=== PATIENT | female | born 1935 | race Caucasian/White ===

== ENCOUNTER → 2016-05-17 | Outpatient (CLI) | payer MEDICARE, BC ==
[~2016-05-17] MED LIST: ASCORBIC ACID500 MG PO; CALTRATE-600 D600 MG PO; CARAFATE DPS1 GM PO; CITRACAL + D E1 EACH PO; DITROPAN XL5 MG PO; GLUCOSAMINE &1 EACH PO; HYZAAR 100-251 EACH PO; LUTEIN6 MG PO; PEPCID DPS20 MG PO; PERCOCET 5 DPS1 TAB PO; PLAVIX75 MG PO; QUESTRAN DPS4 GM PO; THERA1 EACH PO; TUMS DPS500 MG PO; VESICARE5 MG PO; VITAMIN D-32000 UNI1 PO; ZOCOR DPS10 MG PO; ZOFRAN4 MG PO
== END | disposition home or self-care (01) ==
LOC: RAD.S 07:48
DX: R13.10 Dysphagia, unspecified (principal); K44.9 Diaphragmatic hernia without obstruction or gangrene; K22.8 Other specified diseases of esophagus

== ENCOUNTER 2016-06-23 05:41 | Day surgery (SDC) | payer MEDICARE, BC ==
[~2016-06-23] VITALS: Ht 157.5 cm; Wt 67.9 kg
--- NOTE | 2016-06-26 12:44 | OR ---
ADMIT: 06/23/2016 RM/LOC: [facility] MR#: [id number] [address] [address] CHRIS MAR [address] [place] [address] Operative/Delivery Room Report SEX: F AGE: 81 : 1935 SURGERY DATE: 06/23/2016 SURGEON: Duran Cruz MD PREOPERATIVE DIAGNOSES: 1. Reflux. 2. Dysphagia. 3. Known hiatal hernia. POSTOPERATIVE DIAGNOSES: 1. Approximately 4 cm hiatal hernia, appears to be a bit of a paraesophageal hiatal hernia with the gastroesophageal junction being fairly preserved in its position. 2. 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 PROCEDURE PERFORMED: EGD with biopsy. ANESTHESIA: Sedation. ESTIMATED BLOOD LOSS: None. DESCRIPTION OF PROCEDURE: After appropriate informed consent was obtained, the patient was brought to the endoscopy suite. IV sedation was provided. A well-lubricated endoscope was introduced and passed down the esophagus. The proximal and mid esophagus appeared normal. The distal esophagus though became a little bit tortuous, appearance of a presbyesophagus. The GE junction showed just very mild reflux changes, immediately encountered a large hiatal hernia. There was some twisting and distortion of the fundus of the stomach and some evidence of German's ulcerations at the rim of this hiatal hernia. The herniated portion of the stomach measured approximately 4 cm or so. It had a bit of appearance of a paraesophageal hernia with the position of the GE junction being fairly preserved, but the stomach herniating up around this. The antrum appeared normal. The pylorus was intubated. ADMIT: 06/23/2016 RM/LOC: [facility] MR#: [id number] [address] [place], [place] [address] CHRIS MAR [address] [place] [address] Operative/Delivery Room Report SEX: F AGE: 81 : 1935 Duodenal bulb, second and third portions of the duodenum appeared normal. The scope was pulled back into the stomach, retroflexed, revealing again this paraesophageal appearing hiatal hernia from below with some German's ulcerations proximally in the fundus. Several biopsies were taken in the antrum. Biopsies were also taken of the fundus, of the area of German's ulcers, and then lastly biopsies were taken at the GE junction. There was no tumor, no stricture narrowing at the GE junction. Stomach was then deflated, and the scope was withdrawn without apparent complications. The patient tolerated the procedure well and was taken to the recovery room in stable condition. Duran Cruz MD/ petros JOB #: [id number] CC: Duran Cruz, Attending Physician Kemar Delaney, Family Physician Kemar Delaney MD
[2016-07-14] MEDS ORDERED: DITROPAN XL5 MG PO (13:44)
[2016-07-14] MEDS ORDERED: CARAFATE DPS1 GM PO (13:44)
[2016-07-14] MEDS ORDERED: PEPCID DPS20 MG PO (13:44)
[2016-07-14] MEDS ORDERED: HYZAAR 100-251 EACH PO (13:44)
[2016-07-14] MEDS ORDERED: PLAVIX75 MG PO (13:45)
[2016-07-14] MEDS ORDERED: ZOCOR DPS10 MG PO (13:45)
[2016-07-14] MEDS ORDERED: QUESTRAN DPS4 GM PO (13:46)
[2016-07-14] MEDS ORDERED: CITRACAL + D E1 EACH PO (13:46)
[2016-07-14] MEDS ORDERED: THERA1 EACH PO (13:47)
[2016-07-14] MEDS ORDERED: TUMS DPS500 MG PO (13:47)
[2016-07-14] MEDS ORDERED: ASCORBIC ACID500 MG PO (13:47)
[2016-07-14] MEDS ORDERED: GLUCOSAMINE &1 EACH PO (13:47)
[2016-07-14] MEDS ORDERED: VESICARE5 MG PO (13:48)
[2016-07-14] MEDS ORDERED: LUTEIN6 MG PO (13:48)
[2016-07-14] MEDS ORDERED: VITAMIN D-32000 UNI1 PO (13:48)
[2016-07-14] MEDS ORDERED: PERCOCET 5 DPS1 TAB PO (13:48)
[2016-07-14] MEDS ORDERED: CALTRATE-600 D600 MG PO (13:48)
[2016-07-14] MEDS ORDERED: ZOFRAN4 MG PO (13:49)
== END 2016-06-23 08:57 | disposition home or self-care (01) ==
LOC: SSS 05:41
DX: K29.50 Unspecified chronic gastritis without bleeding (principal); K21.0 Gastro-esophageal reflux disease with esophagitis; I10 Essential (primary) hypertension; Z79.899 Other long term (current) drug therapy; Z88.8 Allergy status to other drugs, medicaments and biological substances; Z88.0 Allergy status to penicillin; Z88.2 Allergy status to sulfonamides; Z98.890 Other specified postprocedural states; Z86.73 Personal history of transient ischemic attack (TIA), and cerebral infarction without residual deficits; Z90.710 Acquired absence of both cervix and uterus; Z90.49 Acquired absence of other specified parts of digestive tract

== ENCOUNTER → 2016-07-06 | Outpatient (CLI) | payer MEDICARE, BC | END | disposition home or self-care (01) | LOC: PTH.S 08:54 | DX: Z01.818 Encounter for other preprocedural examination (principal); R00.1 Bradycardia, unspecified ==

== ENCOUNTER 2016-07-12 07:38 | Observation (INO) | payer MEDICARE, BC ==
[~2016-07-12] VITALS: Ht 157.5 cm; Wt 68.3 kg
[2016-07-14] MEDS ORDERED: HYZAAR 100-251 EACH PO (13:44)
[2016-07-14] MEDS ORDERED: DITROPAN XL5 MG PO (13:44)
[2016-07-14] MEDS ORDERED: PEPCID DPS20 MG PO (13:44)
[2016-07-14] MEDS ORDERED: CARAFATE DPS1 GM PO (13:44)
[2016-07-14] MEDS ORDERED: ZOCOR DPS10 MG PO (13:45)
[2016-07-14] MEDS ORDERED: PLAVIX75 MG PO (13:45)
[2016-07-14] MEDS ORDERED: CITRACAL + D E1 EACH PO (13:46)
[2016-07-14] MEDS ORDERED: QUESTRAN DPS4 GM PO (13:46)
[2016-07-14] MEDS ORDERED: THERA1 EACH PO (13:47)
[2016-07-14] MEDS ORDERED: TUMS DPS500 MG PO (13:47)
[2016-07-14] MEDS ORDERED: GLUCOSAMINE &1 EACH PO (13:47)
[2016-07-14] MEDS ORDERED: ASCORBIC ACID500 MG PO (13:47)
[2016-07-14] MEDS ORDERED: VITAMIN D-32000 UNI1 PO (13:48)
[2016-07-14] MEDS ORDERED: PERCOCET 5 DPS1 TAB PO (13:48)
[2016-07-14] MEDS ORDERED: VESICARE5 MG PO (13:48)
[2016-07-14] MEDS ORDERED: LUTEIN6 MG PO (13:48)
[2016-07-14] MEDS ORDERED: CALTRATE-600 D600 MG PO (13:48)
[2016-07-14] MEDS ORDERED: ZOFRAN4 MG PO (13:49)
--- NOTE | 2016-07-19 10:36 | OR ---
ADMIT: 07/12/2016 RM/LOC: [facility] MR#: [id number] [facility] [address] [place] [id number] JOSSIE MARAN Trent [address] [place] [address] Operative/Delivery Room Report SEX: F AGE: 81 : 1935 SURGERY DATE: 07/12/2016 SURGEON: Duran Cruz MD PREOPERATIVE DIAGNOSIS: Large paraesophageal hernia. POSTOPERATIVE DIAGNOSIS: Large paraesophageal hernia. PROCEDURE PERFORMED: Laparoscopic paraesophageal hernia repair and gastropexy. INSPECTOR BALANCE TRUING: Tomas Nicholas MD. ANESTHESIA: General endotracheal with addition of Marcaine in the wounds postprocedure. ESTIMATED BLOOD LOSS: Less than 10 mL. DESCRIPTION OF PROCEDURE: After appropriate informed consent was obtained, the patient was brought to the operating room. General endotracheal anesthesia was induced. The patient's abdomen was prepped and draped in a sterile fashion. A small supraumbilical incision was created. Veress needle was introduced. The abdomen was insufflated with CO2. A 5 mm trocar was placed. Camera was introduced and the abdomen surveyed. She had no intraabdominal adhesions. Four additional ports were placed across the upper abdomen. The liver retractors were placed up underneath the left lobe of liver and held in place with a Lisandro arm. This gave us nice exposure to a large hiatal hernia defect with the majority of the stomach up into the chest. I started reducing the stomach bluntly and started incising along the gastrohepatic ligament medially. I was able to identify the left gastric vessel which was actually pulled up well into the hernia defect, so I was careful to avoid any injury to that. I started the dissection around along the right carrillo and carried this anteriorly incising through the hernia sac and this started reducing this hernia sac down. I got into a nice areolar plane, I was able to reduce the hernia sac and then continued this dissection down along the left carrillo. With the majority of the anterior dissection completed, I then turned my attention posteriorly and completed the posterior dissection reducing the hernia sac, stomach, and esophagus down as we went. Thankfully, the esophageal length was pretty well preserved, so I did not have to work too hard to get the esophageal length. So, circumferentially worked along the esophagus up into the mediastinum dissecting any filmy adhesions or attachments that were putting tension on the stomach and the esophagus which gave us a nice length and nicely reduced the hiatal hernia back down intra- abdominally. With this accomplished, the hernia sac was then excised off the stomach. The stomach laid nicely back intra-abdominally. I did not plan on doing a fundoplication since she did not really have reflux symptoms, most of her problems were dysphagia, and early satiety, and pain in her chest, so since we had the hernia reduced, I then closed the hiatal defect with several interrupted 0 silk sutures using Endo Stitch device. These were placed ADMIT: 07/12/2016 RM/LOC: [facility] MR#: [id number] [address] [address] CHRIS MAR [address] [place] [address] Operative/Delivery Room Report SEX: F AGE: 81 : 1935 posteriorly on the crura, and then a single anterior [id number] 0 silk suture was used to further close the defect. This gave us a nice closure but not overly tight around the esophagus, so she should still be able to swallow easily. Then I used a couple of 0 Ethibond sutures on the Endo Stitch device to take bites of the anterior portion of the stomach and this was pulled out through a separate stab incision with the Endo Stitch device in the left upper quadrant. With the plication sutures in place, the abdomen was then rechecked, everything appeared hemostatic, the liver retractor was removed. The larger port site was closed with [id number] 0 Vicryl suture using a laparoscopic suture passing device. The pressure was brought down to 8, and the plication sutures tied down holding the fundus of the stomach up to the abdominal wall. With this accomplished, the abdomen was next desufflated. All the wounds were infiltrated with Marcaine. The wounds were then closed with 4-0 Monocryl in the subcuticular layer. Sterile dressings were then applied. Dr. Nicholas assisted in this entire procedure. His help was necessary for retraction and camera driving during this difficult dissection. Duran Cruz MD/ petros JOB #: [id number] CC: Duran Cruz, Attending Physician Kemar Delaney, Family Physician Kemar Delaney MD
== END 2016-07-13 11:06 | disposition home or self-care (01) ==
LOC: WOR 07:38 → 6PED 07:38 → WOR 07:38 → 6PED 11:15
PROVIDERS: ADMIT Surgery
PROC: 0BQR4ZZ (ICD-10-PCS; principal; 2016-07-12)
PROC: 0BQS4ZZ (ICD-10-PCS; principal; 2016-07-12)
PROC: 0DQ68ZZ Repair Stomach, Via Natural or Artificial Opening Endoscopic (ICD-10-PCS; principal; 2016-07-12)
DX: K44.9 Diaphragmatic hernia without obstruction or gangrene (principal); I10 Essential (primary) hypertension; K21.9 Gastro-esophageal reflux disease without esophagitis; M19.90 Unspecified osteoarthritis, unspecified site; Z88.0 Allergy status to penicillin; Z88.6 Allergy status to analgesic agent; Z86.73 Personal history of transient ischemic attack (TIA), and cerebral infarction without residual deficits; Z79.899 Other long term (current) drug therapy; Z88.2 Allergy status to sulfonamides; Z90.49 Acquired absence of other specified parts of digestive tract; Z90.710 Acquired absence of both cervix and uterus

== ENCOUNTER → 2016-08-22 | Outpatient (CLI) | payer MEDICARE, BC | END | disposition home or self-care (01) | LOC: RAD.S 09:17 | DX: Z12.31 Encounter for screening mammogram for malignant neoplasm of breast (principal) ==